=== PATIENT | female | born 1955 | race Caucasian/White ===

== ENCOUNTER 2020-07-15 15:12 | Outpatient (CLI) | payer MEDICARE, SELFPAY ==
--- NOTE | 2020-07-15 15:20 | MM_ITS ---
WS: [id number] SCREENING DIGITAL MAMMOGRAM WITH CAD HISTORY: SCREENING COMPARISON: 10/14/2006 Bilateral CC and MLO views submitted. Computer aided detection analyzed. Breast composition: There are scattered areas of fibroglandular density. No suspicious masses, microc alcifications or architectural distortion. MM/[place] [id number] IMPRESSION: BI-RADS: 1-Negative FOLLOW UP: 1 Year Follow-up
== END 2020-07-15 15:13 | disposition home or self-care (01) ==
LOC: RADSHAW 15:17
PROVIDERS: PCP Electrodiagnostic Medicine; Visit Provider Electrodiagnostic Medicine
DX: Z12.31 Encounter for screening mammogram for malignant neoplasm of breast (principal)
CPT/HCPCS: 77067

== ENCOUNTER 2021-11-18 05:39 | Observation (INO) | payer MEDICARE, SELFPAY ==
[2021-11-18] VITALS (10 sets, daily range): BP systolic 119–147; BP diastolic 67–86; PULSE 70–98; RESP 16–18; TEMP 36.9; O2SAT 96–100; BMI 25.6
--- NOTE | 2021-11-18 05:46 | XRR_ITS ---
PROCEDURE INFORMATION: Exam: XR Chest Exam date and time: 11/18/2021 5:52 AM Age: 66 years old Clinical indication: Pain; Chest pressure; Additional info: Cp TECHNIQUE: Imaging protocol: Radiologic exam of the chest. Views: 1 view. COMPARISON: CR XR chest 1V [id number] 02/04/2019 9:50 AM FINDINGS: Lungs: Lungs symmetrically expanded. No consolidation. Pleural spaces: Unremarkable. No pleural effusion. No pneumothorax. Heart/Mediastinum: Unremarkable. No cardiomegaly. Vasculature: Mild unfolding of the descending aorta. Bones/joints: Unremarkable. XR/XR chest 1V portable [id number] IMPRESSION: No acute radiographic findings.
--- NOTE | 2021-11-18 05:50 | ECG_ITS ---
[facility] Test Date: 2021-11-18 Pat Name: Frances Roca Department: Room: Gender: Female Gill Net Stringer: : 1955 Requested By: Francis Carlson Order Number: [id number] Crystal MD: Jose Luis Blair M.D. Measurements Intervals [place] Rate: 80 P: 44 NC: 126 QRS: -19 QRSD: 157 T: 104 QT: 387 QTc: 448 Interpretive Statements SINUS RHYTHM LEFT BUNDLE BRANCH BLOCK [120+ ms QRS DURATION, 80+ ms Q/S IN V1/V2, 85+ ms R IN I/aVL/V5/V6] Compared to ECG 02/04/2019 11:49:18 Left bundle-branch block now present Left anterior fascicular block no longer present Myocardial infarct finding no longer present Electronically Signed On 11-19-2021 13:21:44 CDT by Jose Luis Blair M.D. [id number] f
[2021-11-18 05:53] LABS: Basophils % 0.6 %; Eosinophils % 0.6 %; Hematocrit 37.2 % (37.0-47.0); Hemoglobin 11.7 g/dL (11.5-15.3); Lymphocytes # 1.4 10^3/uL (0.8-4.8); Lymphocytes % 19.2 %; Mean Corpuscular HGB Conc 31.5 g/dL (30.0-36.0); Mean Corpuscular Hemoglobin 30.5 pg (28.0-34.0); Mean Corpuscular Volume 97.1 fl (81-99); Mean Platelet Volume 9.9 fL (7.4-10.4); Monocytes # 0.6 10^3/uL (0.2-0.9); Monocytes % 8.2 %; Neutrophils # 5.07 10^3/uL (1.8-7.7); Neutrophils % 71.3 %; Nucleated Red Blood Cells % 0 %; Platelet Count 235 10^3/cmm (130-400); Red Blood Count 3.83 10^6/uL (4.1-5.3); Red Cell Distribution Width 12.5 % (12.1-15.1); White Blood Count 7.1 10^3/uL (4.0-10.0)
--- NOTE | 2021-11-18 06:09 | W.ED.CHESTPA ---
Documented by User: Francis Khan DO 11/18/21 06:13 HPI - Chest Pain General: Chief Complaint: Chest Pain Stated Complaint: CP Time Seen by Provider: 11/18/21 05:46 Source: patient History of Present Illness: 66-year-old female with no prior history of coronary disease. She presents with chest discomfort that woke her from sleep. She notes a sharp pain to her lower chest. It is now resolved. It lasted for minutes. She was not short of breath, or diaphoretic. She was mildly nauseated but did not throw up. She has never had the symptoms before. She had her grandson called the ambulance, as this concerned her. She takes blood pressure medication. She does not smoke MD complaint: chest pain Onset (ago): minute(s) Timing of current episode: constant and now resolved Prior episodes: No Onset: awoke with symptoms Pain location: substernal and epigastric Pain radiation: none Quality: sharp Relieving factors: nothing Exacerbating factors: nothing Associated symptoms: Reports nausea; Deny abdominal pain, diaphoresis, dyspnea, fever(s), leg edema, palpitations, syncope or vomiting Treatment prior to arrival: none Review of Systems Const: Denies: fever(s) or diaphoresis Eyes: Denies: change in vision ENMT: Denies: throat pain Card: Denies: palpitations or syncope Resp: Denies: dyspnea, productive cough or non-productive cough GI: Reports: nausea; Denies: abdominal pain, vomiting or diarrhea Physical Exam Const: GENERAL APPEARANCE: cooperative; not ill appearing and not frail appearing HENMT: COMMON NORMALS: normocephalic, atraumatic and Normal external nose present HEAD & SCALP: normocephalic and atraumatic FACE & SINUS: normal facial exam and face symmetric NOSE: Normal external nose present Eye: COMMON NORMALS: Equal, round and reactive pupils present and EOMs intact bilaterally PUPIL: Yes Equal, round and reactive pupils present Neck/C-Spine: GENERAL: Yes trachea midline Chest: CHEST: Yes Symmetrical chest wall rise and Yes tenderness (Mild right anterior chest) Resp: COMMON NORMALS: normal respiratory effort, No retractions, No use of accessory muscles and clear to auscultation bilaterally AUSCULTATION: clear to auscultation bilaterally Cardio: COMMON NORMALS: regular rate and regular rhythm RATE: regular rate RHYTHM: regular rhythm GI: COMMON NORMALS: Normal to inspection, nondistended, normoactive bowel sounds present Extremity: COMMON NORMALS: no pedal edema Neuro: SHERMAN COMA SCALE: document GCS findings [place] coma scale eye opening: Spontaneous [place] coma scale verbal response: Orientated Sherman coma scale motor response: Obey commands Sherman coma scale total score: 15 SENSORY EXAM: Yes extremities (intact) Psych: COMMON NORMALS: speech normal SPEECH: Yes normal speech Skin: COMMON NORMALS: no rashes or lesions noted GENERAL SKIN EXAM: no rashes or lesions noted Course Vital Signs: Vital signs: Vital Signs Temperature 98.4 F 11/18/21 05:43 Pulse Rate 84 11/18/21 05:43 Respiratory Rate 18 11/18/21 05:43 Blood Pressure 147/83 11/18/21 05:43 Pulse Oximetry 96 11/18/21 05:43 MDM - Chest Pain Medical Decision Making Patient will be checked out to Dr. Loomis at shift change pending laboratory studies. EKG shows a sinus rhythm with a large left bundle branch block. No prior EKGs available. Pain is resolved. Chest x-ray is not remarkable. CBC is normal. Other laboratory pending. Lab Data : 11/18/21 05:45 11/18/21 05:45 Radiology Impressions Chest X-Ray 11/18/21 05:46 IMPRESSION: No acute radiographic findings. Laboratory Results WBC 7.1 10^3/uL (4.0-10.0) 11/18/21 05:45 RBC 3.83 10^6/uL (4.1-5.3) L 11/18/21 05:45 Hgb 11.7 g/dL (11.5-15.3) 11/18/21 05:45 Hct 37.2 % (37.0-47.0) 11/18/21 05:45 MCV 97.1 fl (81-99) 11/18/21 05:45 MCH 30.5 pg (28.0-34.0) 11/18/21 05:45 MCHC 31.5 g/dL (30.0-36.0) 11/18/21 05:45 RDW 12.5 % (12.1-15.1) 11/18/21 05:45 Plt Count 235 10^3/cmm (130-400) 11/18/21 05:45 MPV 9.9 fL (7.4-10.4) 11/18/21 05:45 Neut % (Auto) 71.3 % 11/18/21 05:45 Lymph % (Auto) 19.2 % 11/18/21 05:45 [place] % (Auto) 8.2 % 11/18/21 05:45 Eos % (Auto) 0.6 % 11/18/21 05:45 Baso % (Auto) 0.6 % 11/18/21 05:45 Neut # (Auto) 5.07 10^3/uL (1.8-7.7) 11/18/21 05:45 Lymph # (Auto) 1.4 10^3/uL (0.8-4.8) 11/18/21 05:45 [place] # (Auto) 0.6 10^3/uL (0.2-0.9) 11/18/21 05:45 Eos # (Auto) 0.0 10^3/uL (0.0-0.8) 11/18/21 05:45 Baso # (Auto) 0.0 10^3/uL (0.0-0.1) 11/18/21 05:45 Nucleated RBC % (auto) 0 % 11/18/21 05:45 Nucleated RBCs # 0.0 /100WBC 11/18/21 05:45 Sodium 142 mmol/L (136-145) 11/18/21 05:45 Potassium 4.0 mmol/L (3.5-5.1) 11/18/21 05:45 Chloride 108 mmol/L (98-107) H 11/18/21 05:45 Carbon Dioxide 28 mmol/L (22-29) 11/18/21 05:45 Anion Gap 10.0 (5-19) 11/18/21 05:45 BUN 17 mg/dL (8-23) 11/18/21 05:45 Creatinine 0.7 mg/dL (0.5-0.9) 11/18/21 05:45 GFR Calculation 83.2 mL/min (90-130) L 11/18/21 05:45 Glucose 95 mg/dL (65-115) 11/18/21 05:45 Calculated Osmolality 295 mOsm/kg (285-295) 11/18/21 05:45 Calcium 9.5 mg/dL (8.5-10.5) 11/18/21 05:45 Total Bilirubin 0.2 mg/dL (0.15-1.2) 11/18/21 05:45 AST 17 U/L (0-32) 11/18/21 05:45 ALT 14 U/L (0-33) 11/18/21 05:45 Alkaline Phosphatase 100 U/L (35-105) 11/18/21 05:45 Troponin T Baseline 8 ng/L (0-10) 11/18/21 05:45 NT-Pro-B Natriuret Pep 119 pg/mL (0-125) 11/18/21 05:45 Total Protein 6.4 g/dL (6.6-8.7) L 11/18/21 05:45 Albumin 3.7 g/dL (3.5-5.2) 11/18/21 05:45 Globulin 2.7 g/dL (1.3-4.6) 11/18/21 05:45 Discharge Plan Discharge Patient Disposition: Placed in Observation Clinical Impression: Chest pain, Left bundle branch block Condition: Stable Referrals: Demetrio Auguste DO [Primary Care Provider] - Sign Out Sign Out Data: Patient Sign Out occurred on 11/18/21 at 06:38. Patient's care was discussed, and care was transferred from to Cristian Loomis DO. Coding Level of Care Code ED Safety Instructor for Chg Fwd Exam Comprehensive Documented by User: Cristian Loomis DO 11/18/21 07:45 HPI - Chest Pain General: Chief Complaint: Chest Pain Stated Complaint: CP Time Seen by Provider: 11/18/21 05:46 Physical Exam Neuro: SHERMAN COMA SCALE: document GCS findings Sherman coma scale total score: 15 Course Vital Signs: Vital signs: Vital Signs Temperature 98.4 F 11/18/21 05:43 Pulse Rate 84 11/18/21 05:43 Respiratory Rate 18 11/18/21 05:43 Blood Pressure 147/83 11/18/21 05:43 Pulse Oximetry 96 11/18/21 05:43 MDM - Chest Pain Medical Decision Making Patient will be checked out to Dr. Loomis at shift change pending laboratory studies. EKG shows a sinus rhythm with a large left bundle branch block. No prior EKGs available. Pain is resolved. Chest x-ray is not remarkable. CBC is normal. Other laboratory pending. Care assumed at change of shift. There is a left bundle branch block with no prior EKGs. Her heart score is 5 we will go ahead and place patient on observation discussed with hospitalist orders written Medical Records I reviewed the patient's medical records. Lab Data I reviewed the patient's lab results. : 11/18/21 05:45 11/18/21 05:45 Radiology Impressions Chest X-Ray 11/18/21 05:46
[2021-11-18 06:16] LABS: Troponin(5th) Baseline 8 ng/L (0-10)
[2021-11-18 06:21] LABS: Alanine Aminotransferase 14 U/L (0-33); Albumin Level 3.7 g/dL (3.5-5.2); Alkaline Phosphatase 100 U/L (35-105); Aspartate Amino Transferase 17 U/L (0-32); Blood Urea Nitrogen 17 mg/dL (8-23); Calcium 9.5 mg/dL (8.5-10.5); Carbon Dioxide 28 mmol/L (22-29); Chloride 108 mmol/L (98-107); Creatinine Clr Calc Pharmacy 58.9275; Globulin 2.7 g/dL (1.3-4.6); Glomerular Filtration Rate 83.2 mL/min (90-130); Glucose 95 mg/dL (65-115); NT Pro B Type Natriuretic Pept 119 pg/mL (0-125); Osmolality Calculated 295 mOsm/kg (285-295); Sodium 142 mmol/L (136-145); Total Bilirubin 0.2 mg/dL (0.15-1.2); Total Protein 6.4 g/dL (6.6-8.7)
--- NOTE | 2021-11-18 07:00 | PC.NURSE ---
Report from shift mgr RN. Patient is awake talking with family at the bedside. No needs at this time, pt updated on plan of care.
--- NOTE | 2021-11-18 07:16 | ECG_ITS ---
[facility] Test Date: 2021-11-18 Pat Name: Frances Roca Department: Room: Gender: Female Rental Coordinator: : 1955 Requested By: Francis Carlson Order Number: [id number] D Rojas MD: Jose Luis Blair M.D. Measurements Intervals [place] Rate: 77 P: 45 [place]: 137 QRS: -19 QRSD: 156 T: 86 QT: 404 QTc: 459 Interpretive Statements SINUS RHYTHM LEFT BUNDLE BRANCH BLOCK [120+ ms QRS DURATION, 80+ ms Q/S IN V1/V2, 85+ ms R IN I/aVL/V5/V6] Compared to ECG 11/18/2021 05:50:28 No significant changes Electronically Signed On 11-19-2021 13:30:20 CDT by Jose Luis Blair M.D. [id number]
--- NOTE | 2021-11-18 11:46 | ECG_ITS ---
[facility] Test Date: 2021-11-18 Pat Name: Frances Roca Department: Room: [facility] Gender: Female Certified Pediatric Nurse Practitioner: : 1955 Requested By: Francis Carlson Order Number: [id number] D Rojas MD: Jose Luis Blair M.D. Measurements Intervals [place] Rate: 70 P: 41 [place]: 142 QRS: -16 QRSD: 156 T: 81 QT: 415 QTc: 450 Interpretive Statements SINUS RHYTHM LEFT BUNDLE BRANCH BLOCK [120+ ms QRS DURATION, 80+ ms Q/S IN V1/V2, 85+ ms R IN I/aVL/V5/V6] Compared to ECG 11/18/2021 07:16:32 No significant changes Electronically Signed On 11-19-2021 13:29:38 CDT by Jose Luis Blair M.D. [id number]
[2021-11-18 11:56] LABS: Troponin 5 2HR Delta -0.1 ABS# (0-10)
[2021-11-18 13:30] LABS: D Dimer 0.58 ug/mIFEU (0-0.59)
--- NOTE | 2021-11-18 13:39 | USCV_ITS ---
Frances Roac Age: 66 Gender: F : 1955 Exam Date: 11/18/2021 14:03 Ordering Phys: Yasmany Sanderson MD Technologist: TUSHAR Exam Location: [facility] [place] Indication: IBBB, CHEST PAIN BP: 142 / 84 HR: 77 Rhythm: Sinus Technical Quality: Adequate MEASUREMENTS (Male / Female) Normal Values 2D ECHO LV Diastolic Diameter PLAX 4.7 cm 4.2 - 5.9 / 3.9 - 5.3 cm LV Systolic Diameter PLAX 3.3 cm IVS Diastolic Thickness 1.2 cm 0.6 - 1.0 / 0.6 - 0.9 cm IVS Systolic Thickness 1.5 cm LVPW Diastolic Thickness 1.5 cm 0.6 - 1.0 / 0.6 - 0.9 cm LVPW Systolic Thickness 1.7 cm LVOT Diameter 2.0 cm LV Ejection Fraction 2D Teich 57.9 % LV Ejection Fraction MOD 2C 57.4 % LV Ejection Fraction 2C AL 59.1 % LA Diameter 3.1 cm LA Width 3.5 cm LA Height 5.0 cm RA Width 3.8 cm RA Height 4.3 cm Aorta at Sinotubular Diameter 2.2 cm IVC Diameter 1.3 cm M-MODE Aortic Annulus Diameter 2.8 cm LA Ao Ratio MM 0.9 MV E Point Septal Separation 0.6 cm DOPPLER AV Peak Velocity 166.0 cm/s LVOT Peak Velocity 108.0 cm/s AV Area Cont Eq vti 2.5 cm squared AV Area Cont Eq pk 2.0 cm squared MV Peak Velocity 90.0 cm/s MV Area PHT 3.5 cm squared Mitral E to A Ratio 0.9 MV E' Velocity 48.4 cm/s Mitral E to MV E' Ratio 5.8 Mitral E to LV E' Lateral Ratio 4.6 Mitral E to LV E' Septal Ratio 7.9 TR Peak Velocity 185.7 cm/s TR Peak Gradient 13.8 mmHg TR Mean Velocity 148.9 cm/s TR Mean Gradient 9.4 mmHg TR Velocity Time Integral 56.5 cm TV Peak E Velocity 66.0 cm/s Right Atrial Pressure 3.0 mmHg Pulmonary Artery Systolic Pressu 16.8 mmHg PV Peak Velocity 123.3 cm/s RV Acceleration Time 0.1 s RV Ejection Time 0.3 s RV AcT/ET 0.4 FINDINGS Left Ventricle Left ventricle is normal in size. LV systolic function is normal with EF of 55 to 60%. No regional wall motion abnormalities are seen. Grade 1 diastolic dysfunction Right Ventricle Normal size and function Right Atrium Normal in size Left Atrium Mildly dilated Mitral Valve Mitral valve is normal in structure. Mild mitral regurgitation. Aortic Valve Structurally normal aortic valve. Mild aortic regurgitation. No significant aortic stenosis is seen. Tricuspid Valve Trace tricuspid regurgitation. Insufficient TR jet to calculate RVSP. Pulmonic Valve Not well-visualized Pericardium Normal Aorta Normal in size IVC CONCLUSIONS LV systolic function is normal with EF of 55 to 60%. Grade 1 diastolic dysfunction. Mildly dilated left atrium. Mild mitral regurgitation. Mild aortic regurgitation Trace tricuspid regurgitation. No comparison studies are available. Jose Luis Blair MD (Electronically Signed) Final Date: 18 November 2021 15:24 S
[2021-11-18 14:37] LABS: Troponin 5 6HR 7.68 ng/L (0-10)
[2021-11-18 14:46] LABS: Chol HDL Ratio 2.48 mg/dL (0.0-4.40); Cholesterol 191 mg/dL (0-200); HDL Cholesterol 77 mg/dL (60-100); LDL Cholesterol Calculated 104 mg/dL (50-129); Triglycerides 52 mg/dL (0-150); VLDL Cholestrol Calculation 10 mg/dL (0-30)
[2021-11-18 14:47] LABS: Estmated Average Glucose 105; Hemoglobin A1C 5.3 % (4.0-6.0)
--- NOTE | 2021-11-18 15:01 | P.SS_ITS ---
Short Stay Summary Providers Date of Admit/Discharge: 11/18/21 Attending Provider: Yasmany Sanderson MD Primary Care Provider: Demetrio Auguste DO Chief Complaint: CP HPI History of Present Illness Frances Roca is a 66 year old female with past medical history of hypertension on oral lisinopril presents to the ER in early hours on 11/18 because of localized central chest pain which woke her up from the sleep. Pain was nonradiating, not chest pain, not associated with nausea, vomiting, difficulty in breathing, diaphoresis or palpitations. Pain was short-lived and was relieved by the time she presented to the ER. Did not have any further episodes. Patient was admitted to the ICU after conversation with overnight physician. On my examination while patient was in the ICU patient was sitting comfortably with family at bedside. Patient states she has not had any further chest pain. Denies any nausea, vomiting, headache, dizziness, palpitations. Blood pressures have remained stable. On review of chart patient had a Lexiscan stress test done in February 2019 which was ruled out for any active ischemia. Patient does have left bundle branch block on EKG which was present in the past as well. Patient's troponin cycled in 2 hours have remained negative to 6-hour troponin levels are still pending. Echocardiogram has been done. Further treatment plan including possible etiology of symptoms including esophageal spasm, bronchospasm, possible CAD though unlikely given atypical nature of the chest pain were discussed in detail with the patient. D-dimer was added which came back negative. Patient continues to remain on room air during hospitalization. Further treatment plan including requirement of Lexiscan stress test to definitely rule out CAD was discussed in detail. We also discussed unfortunately Lexiscan stress test cannot be done over the weekend at [facility] and she will need to wait in hospital till Saturday versus to do the stress test as an outpatient. Patient verbalized understanding and would want to come back early next week as an outpatient for the stress test. Danger signs including chest pain recurrence with associated symptoms of nausea, vomiting, diaphoresis, palpitations or shortness of breath was discussed in detail with the patient. She was advised to present back to the ER on recurrence of symptoms. Otherwise she is asked to follow-up with her primary care provider within next 1 week. She is advised to follow-up for Lexiscan stress test as soon as possible. Review of Systems General: Reports: 10 or more systems reviewed and unremarkable except in HPI and below Const: Denies: fever(s), chills, body aches, change in appetite, change in weight, malaise, night sweats, diaphoresis, change in sleep pattern, daytime sleepiness or snoring Eyes: Denies: change in vision, blurry vision, photophobia, eye discomfort or eye discharge ENMT: Denies: throat pain, enlarged tonsils, hoarseness, mouth pain, oral sores, dry mouth, tinnitus, nasal congestion or post nasal drip Card: Denies: chest pain, palpitations, irregular heart rhythm, edema, swelling of feet/ankles, lightheadedness, syncope, pre-syncope, dyspnea on exertion, orthopnea, leg pain with exertion or acrocyanosis Resp: Denies: dyspnea, productive cough, non-productive cough, wheezing, stridor, pain on inspiration, change in phlegm color, hemoptysis or chest congestion GI: Denies: abdominal pain, nausea, vomiting, hematemesis, coffee ground e mesis, dysphagia, heartburn, diarrhea, constipation, bloating, GI cramping, change in bowel habits, pain on defecation, hematochezia or melena : Denies: flank pain, dysuria, urinary frequency, urinary urgency, urinary hesitancy, nocturia or hematuria Musc: Denies: neck pain, back pain, extremity pain, joint pain, joint swelling, joint redness, joint stiffness or limited range of motion Neuro: Denies: headache(s), numbness in extremities, weakness in extremities, sensory changes, lack of coordination, difficulty walking, frequent falls, dizziness, vertigo, confusion, Slurred speech present, difficulty communicating thoughts or seizure-like activity Psych: Denies: anxiety, depression, mood swings, panic attacks, hopelessness or irritability Endo: Denies: polyuria, polydipsia, tired all the time, cold intolerance, excessive sweating, flushing or heat intolerance Eber/Lymph: Denies: easy bruising or easy bleeding All/Imm: Denies: tongue swelling, facial swelling or acute wheezing Home Meds/Allergies Home Medications and Allergies Home Medications Medication Instructions Recorded Confirmed Type Prevagen 1 tab PO DAILY 11/18/21 11/18/21 History ascorbic acid (vitamin C) 1,000 mg 1 g PO DAILY 11/18/21 11/18/21 History tablet (Vitamin C) lisinopril 20 mg tablet 20 mg PO DAILY 11/18/21 11/18/21 History Allergies Allergy/AdvReac Type Severity Reaction Status Date / Time Sulfa (Sulfonamide Allergy Unknown Unknown Verified 11/18/21 09:46 Antibiotics) PFSH Acute PFSH: Medical History Hypertension Left bundle branch block Smoker Family History (Updated 11/18/21 @ 15:06 by Yasmany Sanderson MD) Other CAD (coronary artery disease) Diabetes Social History (Updated 11/18/21 @ 15:06 by Yasmany Sanderson MD) Smoking and tobacco status: former smoker Quit status (tobacco): has quit using tobacco Alcohol intake: never Substance/Drug Use: never Household members: family Housing: House Vitals/I&O/Wt Last Vital Signs Temp 98.4 F 11/18/21 05:43 Pulse 98 11/18/21 13:48 Resp 16 11/18/21 12:12 BP 123/75 11/18/21 12:12 Pulse Ox 100 11/18/21 13:48 O2 Del Method 11/18/21 13:48 11/18/21 11/18/21 11/18/21 06:59 14:59 22:59 Intake Total 150 / 150 Balance 150 / 150 Weight last 48 hrs Weight 63.503 kg Weight 63.503 kg Physical Exam Narrative: General: No acute distress, AO x3 HEENT: PERRLA, pupils bilaterally equal and reactive Chest: Normal vesicular breath sounds, no added sounds, equal good air entry bilaterally CVS: S1-S2 regular, no murmurs, no tachycardia, no gallops, no rubs Abdomen: Soft, nontender, no organomegaly, bowel sounds present Neuro: No focal deficits, no facial deformity, AO x3, power 5/5 in all limbs Hospital Course Admission Diagnoses Atypical chest pain Discharge Summary Patient was admitted to the hospital through the ER for above underlined history. During hospitalization patient did not have any further chest pain. Her troponin cycled remain negative, D-dimer remained negative. Patient continued to be hemodynamically stable afebrile and on room air. PE or lung pathology was ruled out with a negative D-dimer and negative chest x-ray. Possibility of esophageal spasm were discussed in detail with the patient. We discussed regarding cutting down on caffeine use. We also discussed CAD has not been ruled out though unlikely given Lexiscan stress test being negative in 2019 and atypical nature of pain though patient does have a history of smoking in the past. We discussed requirement for Lexiscan stress test to be done on a sooner basis to rule CAD out. We discussed possibility of stress test being done on Saturday while being in hospital versus as an outpatient. Patient would want a come out as an outpatient. Echocardiogram has been done and is pending. She is been discharged on home lisinopril. Oral atorvastatin and aspirin has been added to her medication list. She is advised to follow-up with her primary care provider within 1 week with Lexiscan stress test. She states she already has an appointment with her primary care provider within a week for a 6-month recheck. SSS Data Data Completed and Pending: Completed Studies During Hospitalization Category Date Time Status XR chest 1V marcos ble [id number] Stat Exams 11/18/21 05:46 Completed Pending at discharge Category Date Time Status Basic Metabolic P frankie AM LABS Lab 11/19/21 04:00 Ordered Complete Blood Co unt w/Auto AM LABS Lab 11/19/21 04:00 Ordered Troponin(5th) 6 h our. Timed Lab 11/18/21 13:46 Results CV. echo complete * [id number] Routine Ultrasound 11/18/21 13:39 Taken Discharge Plan Discharge Patient Disposition: Home Condition: Stable Prescriptions: New aspirin 81 mg capsule 81 mg PO DAILY Qty: 30 0RF atorvastatin 40 mg tablet 40 mg PO DAILY Qty: 30 0RF Continued Vitamin C 1,000 mg Tablet 1 g PO DAILY lisinopril 20 mg tablet 20 mg PO DAILY Prevagen 1 tab PO DAILY Discharge Orders: Discharge Order (Routine); Ordered 11/18/21 Ordered By: Yasmany Sanderson Other Ambulatory Orders: NM wilma perf SPECT r/s* [id number] (Routine) Timeframe: 1 Week Facility: [facility] - Location: Radiology Ordered By: Yasmany Sanderson Referrals: Demetrio Auguste DO [Primary Care Provider] - 7-10 days Discharge Diet: Cardiac Discharge Activity: Resume usual activity and Increase activity as tolerated Patient Instructions: Opioid Safety Activity Restrictions/Additional Instructions: Please schedule an appointment for Lexiscan stress test within next 1 week. Please follow-up with your primary care provider within next 1 week. If you have repeat of chest pain associated with nausea, vomiting, diaphoresis, difficulty in breathing please come to the ER. Take aspirin 81 mg daily along with atorvastatin which is a cholesterol medication daily for now. Please abstain from smoking as much as possible. Attestations Medical Necessity Statement*: Patient will follow-up as an outpatient for Lexiscan stress test to rule out CAD in setting of atypical chest pain Time Spent in Patient Care*: greater than 30 min Time Spent in Smoking Cessation: Time spent discussing smoking cessation with patient: more than 10 minutes Specific Discharge Activities: Specific discharge activities: educating patient, educating and/or supporting family/caregiver, discussing with rehabilitation caseworker/social workers/dc planners, documenting/other paperwork and evaluating patient/reviewing data Status at Discharge: Cognitive status at discharge: cognitively intact , Behavioral status at discharge: cooperative , Functional status at discharge: independent ambulation Overall status at discharge: patient is back to baseline Quality Metrics Clinical Quality Measures: [ No reported AMI, CVA or VTE this stay ] Coding Level of Care Code Acute Business System Consultant for Deyanira Moran
[2021-11-18 15:33] LABS: Troponin 5 6HR Delta -0.32 ng/L (0-12)
--- NOTE | 2021-11-18 15:59 | PC.NURSE ---
fax to centralized scheduling for scan to be scheduled next week copy of rx . given to pt and sent to pharmacy.. piid removed and pt discharged
== END 2021-11-18 16:01 | disposition home or self-care (01) ==
LOC: ER 08:00 → ICU 12:25
PROVIDERS: Emergency Medicine; Admitting Provider Student in an Organized Health Care Education/Training Program; Emergency Provider Family Medicine; PCP Electrodiagnostic Medicine; Visit Provider Student in an Organized Health Care Education/Training Program
DX: R07.89 Other chest pain (principal); I10 Essential (primary) hypertension; I44.7 Left bundle-branch block, unspecified; I08.0 Rheumatic disorders of both mitral and aortic valves; Z87.891 Personal history of nicotine dependence; Z88.2 Allergy status to sulfonamides; Z82.49 Family history of ischemic heart disease and other diseases of the circulatory system
CPT/HCPCS: 71045; 80053; 80061; 83036; 83880; 84484; 85025; 85378; 93005; 93306; 99285; G0378

== ENCOUNTER 2021-12-12 07:52 | Outpatient (CLI) | payer MEDICARE, SELFPAY ==
--- NOTE | 2021-12-12 | ECG_ITS ---
[facility] Test Date: 2021-12-12 Pat Name: Frances Roca Department: Room: Gender: Female Mechanical Maintenance Technician: Corie Jung : 1955 Requested By: Yasmany Sanderson Order Number: [id number] Crystal MD: Jose Luis Blair M.D. Interpretive Statements NAME OF STUDY: LEXISCAN SESTAMIBI STRESS TEST INDICATION: [Chest Pain, LBBB, ] Procedure: At the baseline, the blood pressure was 133/73 mmHg with a heart rate of 62 bpm. The electrocardiogram showed normal sinus rhythm, left bundle branch block. The Lexiscan was infused over a period of 20 seconds. A total of 0.4 mg of Lexiscan was infused. The stress phase was continued for a total of 5 minutes. Heart rate was at the end of stress phase was 87 bpm and a blood pressure of 116/64 mmHg. The EKG at the peak infusion revealed normal sinus rhythm with no significant ST-T wave changes. Sestamibi was injected 20 seconds after the Lexiscan infusion. Blood pressure at the end of recovery phase was 122/69 mmHg with a heart rate of 75 bpm. Conclusion: 1. Normal EKG response to Lexiscan infusion 2. No Lexiscan induced chest pain or cardiac arrhythmia. 3. Normal blood pressure and heart rate response. 4. Sestamibi/sestamibi perfusion scan pending; see separate report. Electronically Signed On 12-16-2021 21:17:15 CDT by Jose Luis Blair M.D. [id number]
[2021-12-12 08:20] VITALS: BMI 27.4
--- NOTE | 2021-12-12 08:21 | NMCV_ITS ---
NM wilma perf SPECT r/s* [id number] Frances Roca Age: 66 Gender: F : 1955 Exam Date: 12/12/2021 08:21 Ordering Phys: Yasmany Sanderson MD Technologist: ARON Arzola Exam Location: [facility] Indications: CHEST PAIN STRESS TEST Please see separate stress test report in [facility] for full findings IMAGE PROTOCOL Rest/Stress 1 Lexiscan Day Radiopharmaceutical Dose (mCi) Administration Site Administered by Rest: Tc-99m 10.8 IV ARON Arzola Sestamibi Stress:Tc-99m 32.5 IV ARON Sosa Sestamibi Rest: 12-Dec-2021 60 Discovery 630 Stress: 12-Dec-2021 Discovery 630 0.4mg Lexiscan. Images obtained in supine and prone position. SPECT RESULTS Technical Quality: Excellent Raw Data Analysis: Normal Image Corrections: No attenuation or motion correction applied Summed Stress Score: 5 Summed Rest Score: 9 Summed Difference Score: 0 PERFUSION FINDINGS There is a moderate sized, fixed perfusion defect noted in apical, apical septal and apical inferior wall. This is consistent with moderate sized prior infarct in LAD and RCA territories. No evidence of ischemia seen. FUNCTIONAL RESULTS (calculated via Gated SPECT) Stress Image LV EF (%): 70 Stress EDV (mL):99 TID: 1.03 Stress ESV (mL):30 FUNCTIONAL FINDINGS: There is normal left ventricular systolic function. IMPRESSIONS 1. Abnormal myocardial perfusion imaging with moderate sized prior infarct noted in the LAD and RCA territories. 2. LV systolic function is normal Jose Luis Blair MD (Electronically Signed) Final Date: 12 December 2021 12:20 S
[2021-12-12] MEDS: regadenoson 0.4 Mg/5 ml Syringe IVP (09:54)
[2021-12-12 10:06] VITALS: BP 122/69; PULSE 76
== END 2021-12-12 07:53 | disposition home or self-care (01) ==
PROVIDERS: PCP Electrodiagnostic Medicine; Visit Provider Student in an Organized Health Care Education/Training Program
DX: R07.9 Chest pain, unspecified (principal)
CPT/HCPCS: 78452; 93017; A9500; J2785

== ENCOUNTER 2022-08-07 10:41 | Outpatient (CLI) | payer MEDICARE, SELFPAY ==
--- NOTE | 2022-08-07 10:54 | MM_ITS ---
WS: [id number] VIEWS: MLO and CC views both breasts. 3D digital tomosynthesis is also included in this exam. Comparison made with prior exam of 10/14/2006, 07/15/2020.. Findings: There was no sign of mass, architectural distortion or suspicious calcification in either breast. Th ere are scattered areas of fibroglandular density MM/[place] [id number] Impression: BI-RADS: 2 Benign finding FOLLOW-UP: 1 Year Follow-up This mammogram was also analyzed by the Computer Aided Detection System R2 Imag e Excel Analyst.
--- NOTE | 2022-08-07 11:14 | XR_ITS ---
WS: [id number] DEXA (DUAL ENERGY X-RAY ABSORPTIOMETRY) Bone mineral density was performed using a [employer] machine. HISTORY: POSTMENOPAUSAL COMPARISON: None available. Lumbar spine BMD (L1-L4): 1.078 g/cm2 T score: -0.8 Z score: 0.9 Total hip BMD: Left: 0.737 g/cm2. T score: -2.1 Z score: -0.7 Right: 0.748 g/cm2. T score: -2.1 Z score: -0.6 10 year probability of a major osteoporotic fracture is 14.6%. XR/XR DEXA axial skeleton* [id number] IMPRESSION: OSTEOPENIA based upon the WHO classification for females.
== END 2022-08-07 10:42 | disposition home or self-care (01) ==
LOC: RAD 10:48
PROVIDERS: PCP Electrodiagnostic Medicine; Visit Provider Physician Assistant
DX: Z12.31 Encounter for screening mammogram for malignant neoplasm of breast (principal); Z78.0 Asymptomatic menopausal state; M85.88 Other specified disorders of bone density and structure, other site
CPT/HCPCS: 77063; 77067; 77080

== ENCOUNTER 2024-08-24 08:22 | Outpatient (CLI) | payer MEDICARE, SELFPAY ==
--- NOTE | 2024-08-24 08:27 | MR_ITS ---
WS: [id number] MRI BRAIN WITH AND WITHOUT CONTRAST HISTORY: ABNORMAL TSH COMPARISON: None available. TECHNIQUE: Multiplanar imaging performed through the brain with MultiHance 13 ml's IV. No acute infarcts. Normal diffusion imaging. Moderate scattered T2 and FLAIR signal hyperintensities of the periventricular and subcortical white matter. Greater signal abnormality in the LEFT centrum semiovale and clemente radiata. Mild cerebral and cerebellar atrophy. No susceptibility artifacts or prior lacunar infarcts. Ventricles and extra-axial spaces are normal. Clivus and pituitary gland are normal. Visualized posterior fossa and brainstem are also normal. Postcontrast images are negative for masses or vascular malformations. Dural venous sinuses are normal. Paranasal sinuses: Mild mucoperiosteal thickening RIGHT maxillary sinus. No air- fluid levels. Mastoid air cells: Normal. Calvarium and scalp: Normal. MR/MR head wo/w con [id number] IMPRESSION: 1. No acute infarct, hemorrhage or enhancing mass. 2. Mild cerebral and cerebellar atrophy. 3. Moderate T2 and FLAIR signal hyperintensities, greater distribution in the LEFT centrum semiovale and clemente radiata. Probably related to small vessel dis ease. 4. Normal ventricles.
[2024-08-24] MEDS: gadobenate dimeglumine 20 mL vial IV (09:02)
== END 2024-08-24 08:23 | disposition home or self-care (01) ==
LOC: RAD 08:23
PROVIDERS: PCP Electrodiagnostic Medicine; Visit Provider Electrodiagnostic Medicine
DX: G31.9 Degenerative disease of nervous system, unspecified (principal); R79.89 Other specified abnormal findings of blood chemistry
CPT/HCPCS: 70553

== ENCOUNTER 2024-08-24 10:35 | Emergency (ER) | payer MEDICARE, SELFPAY ==
[2024-08-24 10:42] VITALS: BP 152/75; PULSE 71; RESP 17; TEMP 36.7; O2SAT 100; BMI 24.7
--- NOTE | 2024-08-24 10:48 | ECG_ITS ---
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 Measurements Intervals [place] Rate: 70 P: 59 WV: 132 QRS: -1 QRSD: 158 T: 75 QT: 422 QTc: 457 Interpretive Statements SINUS RHYTHM LEFT BUNDLE BRANCH BLOCK [120+ ms QRS DURATION, 80+ ms Q/S IN V1/V2, 85+ ms R IN I/aVL/V5/V6] Compared to ECG 11/18/2021 11:21:41 No significant changes Electronically Signed On 08-24-2024 21:57:38 CDT by Armin Dietrich M.D. [id number]
--- NOTE | 2024-08-24 13:19 | W.ED.GENADLT ---
HPI - General Adult General: Chief complaint: Extremity Problem,Nontraumatic Stated complaint: numbess,tingling, in chest legs after mri Time Seen by Provider: 08/24/24 13:17 Source: patient Mode of arrival: ambulatory Limitations: no limitations History of Present Illness: Patient is a 68-year-old female who presents to the ED with a chief complaint of tingling in both lower extremities. Approximately 30 minutes ago she had an MRI done with contrast, and after she stood up from the MRI she had tingling in both of her lower legs. She also had some tingling across her chest and was dizzy when she stood up, but these have since resolved. She has never experienced symptoms like this before, and has never had imaging with contrast before. She denies nausea, shortness of breath, angioedema, chest pain, heart palpitations, swelling of extremities, or color changes of the extremities. Onset (ago): minute(s) Location: lower extremity (Bilateral) Radiation: non-radiation Severity: mild Quality: other (Tingling) Relieving factors: none Exacerbating factors: none Associated symptoms: Reports no associated symptoms; Deny chest pain, dyspnea, headache(s), nausea, rash, palpitations, syncope or vomiting Treatments prior to arrival: none Related Data Home Medications ?Medication ?Instructions ?Recorded ?Confirmed Prevagen 1 tab PO DAILY 11/18/21 11/18/21 ascorbic acid (vitamin C) 1,000 mg 1 g PO DAILY 11/18/21 11/18/21 tablet (Vitamin C) lisinopril 20 mg tablet 20 mg PO DAILY 11/18/21 11/18/21 Previous Rx's ?Medication ?Instructions ?Recorded aspirin 81 mg capsule 81 mg PO DAILY #30 caps 11/18/21 atorvastatin 40 mg tablet 40 mg PO DAILY #30 tabs 11/18/21 Allergies Allergy/AdvReac Type Severity Reaction Status Date / Time Sulfa (Sulfonamide Allergy Unknown Unknown Verified 11/18/21 09:46 Antibiotics) Review of Systems Const: Denies: fever(s) or chills Eyes: Denies: change in vision or blurry vision Card: Denies: chest pain, palpitations, irregular heart rhythm, edema, swelling of feet/ankles, lightheadedness, syncope, pre-syncope, dyspnea on exertion, orthopnea, leg pain with exertion or acrocyanosis Resp: Denies: dyspnea, productive cough or pain on inspiration GI: Denies: abdominal pain, nausea, vomiting, heartburn or diarrhea : Denies: dysuria Musc: Denies: neck pain, back pain, extremity pain (Burning, tingling in lower extremities bilaterally), extremity swelling or joint pain Skin/Breast: Denies: rash Neuro: Reports: sensory changes (tingling to bilateral LEs); Denies: headache(s), numbness in extremities, weakness in extremities, lack of coordination or difficulty walking PFS ED PFSH: Medical History Smoker Hypertension Left bundle branch block Family History Other CAD (coronary artery disease) Diabetes Social History Smoking and tobacco/nicotine status: former use of tobacco/nicotine Quit status (tobacco/nicotine): has quit using Alcohol intake: never Substance/Drug Use: never Household members: family Housing: House Physical Exam Const: COMMON NORMALS: no acute distress, patient oriented x3, no limitations, alert and well nourished GENERAL APPEARANCE: cooperative ORIENTATION/CONSCIOUSNESS: Yes awake, Yes oriented to person, Yes oriented to place and Yes oriented to time Neck/C-Spine: COMMON NORMALS: full ROM Chest: COMMONS NORMALS: normal inspection of the chest CHEST: Yes Symmetrical chest wall rise Resp: COMMON NORMALS: normal respiratory effort and clear to auscultation bilaterally EFFORT & INSPECTION: Yes able to speak in complete sentences and Yes symmetric chest movement AUSCULTATION: clear to auscultation bilaterally Cardio: COMMON NORMALS: regular rate and regular rhythm RATE: regular rate RHYTHM: regular rhythm Back/Pelvis: COMMON NORMALS: thoracic and lumbar spine normal to inspection, no thoracic nor lumbar tenderness, thoraco-lumbar ROM normal and straight leg raise negative bilaterally Extremity: COMMON NORMALS: normal to inspection, full ROM, capillary refill normal, no joint enlargement, no clubbing, cyanosis or edema, no calf tenderness and no pedal edema NARRATIVE EXTREMITY EXAM: Burning/tingling reported anterior aspect of lower extremities bilaterally. Strength and sensation intact bilaterally lower extremities. Pulses/cap refill normal. No edema. GENERAL: Yes normal exam except as noted Neuro: COMMON NORMALS: patient oriented x3, moves all extremities, no focal motor deficits, no sensory deficits noted and gait normal SENSORIUM/ORIENTATION: Yes alert, Yes oriented to person, Yes oriented to place and Yes oriented to time GAIT: Yes Normal gait present SENSORY EXAM: Yes extremities (Normal) MOTOR EXAM: 5/5 motor strength present throughout Skin: COMMON NORMALS: no rashes or lesions noted GENERAL SKIN EXAM: no rashes or lesions noted Course Vital Signs: Vital signs: Vital Signs Temperature 98.0 F 08/24/24 10:42 Pulse Rate 71 08/24/24 10:42 Respiratory Rate 17 08/24/24 10:42 Blood Pressure 152/75 08/24/24 10:42 Pulse Oximetry 100 08/24/24 10:42 Oxygen Delivery Me thod Room Air 08/24/24 10:42 MDM - General Adult Medical Decision Making Patient here with mild bilateral lower extremity paresthesias following gadolinium contrast. Clinically, sensation is intact. Strength is normal. She is ambulatory without difficulty or assistance. Suspect this is related to contrast or maybe positioning during exam. Suspect this should resolve on it's own. NIH 0. She can also follow up with PCP later this week. Medical Records I reviewed the patient's medical records. No radiology studies performed this visit Discharge Plan Discharge Patient Disposition: Home Clinical Impression: Paresthesia of bilateral legs Condition: Stable Prescriptions: No Action Vitamin C 1,000 mg Tablet 1 g PO DAILY lisinopril 20 mg tablet 20 mg PO DAILY Prevagen 1 tab PO DAILY aspirin 81 mg capsule 81 mg PO DAILY Qty: 30 0RF atorvastatin 40 mg tablet 40 mg PO DAILY Qty: 30 0RF Discharge Orders: Discharge ED (Routine); Ordered 08/24/24 Ordered By: Marce Yates Referrals: Demetrio Auguste DO [Primary Care Provider, [facility]] Activity Restrictions/Additional Instructions: As we discussed, I would anticipate symptoms improving over the next 24 to 48 hours. You may follow-up with Dr. Auguste later this week. You may return to the emergency department at anytime for any further concerns you may have. Print Language: Turkmen Coding Level of Care Code ED Channel Rougher for Deyanira Moran
== END 2024-08-24 14:16 | disposition home or self-care (01) ==
PROVIDERS: Emergency Provider Physician Assistant; PCP Electrodiagnostic Medicine
DX: R20.2 Paresthesia of skin (principal); Z79.82 Long term (current) use of aspirin; Z87.891 Personal history of nicotine dependence; I10 Essential (primary) hypertension
CPT/HCPCS: 93005; 99283